=== PATIENT | female | born 1960 | race Caucasian/White ===

== ENCOUNTER → 2016-10-10 | Outpatient (CLI) | payer OTHER ==
[~2016-10-10] MED LIST: ACYC1OIN4 TOP; ALBU18002 INH; ALPR-411 PO; AMT24 PO; BIOTCAP2 PO; CALC-459 PO; CINN1CAP2 PO; CYCL0.052 OP; DTR/5 PO; FLUT1INH7 INH; FOLI1TAB7 PO; FURO-85 PO; MELO7.5T5 PO; MESA800T5 PO; METH2.5T PO; MIRA1TAB3 PO; MONT1TAB3 PO; NYSS/ PO; OXYM0.0525 NAE; PANC1200 PO; PANT40TA PO; PILO5TAB10 PO; POTA20TA16 PO; RANI150T3 PO; RMCI INJ; RXC5 PO; SUCR1TAB29 PO; TRAZ50TA35 PO; VENL150C PO
--- NOTE | 2016-10-10 15:16 | DIAGNOSTIC IMAGING REPORT ---
CHEST 2 VIEWS ROUTINE CLINICAL HISTORY: D84.9 Immunocompromised [id number] COMPARISON STUDY: No previous studies for comparison. FINDINGS: The bones soft tissues and hemidiaphragms are normal. The cardiomediastinal silhouette is normal. The lungs are clear. The pulmonary vasculature is normal. IMPRESSION: Negative chest. Electronically signed by: Teddy Escobar M.D. 10/10/2016 3:15 PM Dictated Date/Time: 10/10/2016 3:14 PM
[2016-10-10 15:46] LABS: BASO % 0.4 %; BASO ABS # 0.04 K/uL (0-0.2); COMPLETE YES; EOS % 0.6 %; HEMATOCRIT 37.8 % (37-47); IG% 0.2 %; LYMPH % 35.2 %; LYMPH ABS # 3.41 K/uL (1.2-3.4); MEAN CELL VOLUME 95.5 fL (80-100); MEAN CORPUSCULAR HEMOGLOBIN 30.3 pg (25-34); MEAN CORPUSCULAR HGB CONC 31.7 g/dl (32-36); MEAN PLATELET VOLUME 10.5 fL (7.4-10.4); MONO % 5.1 %; NEUT % 58.5 %; PLATELET COUNT 259 K/uL (130-400); RED BLOOD COUNT 3.96 M/uL (4.2-5.4); WHITE BLOOD COUNT 9.69 K/uL (4.8-10.8)
[2016-10-10 16:13] LABS: ALT/SGPT 25 U/L (12-78); AST/SGOT 24 U/L (15-37); BLOOD UREA NITROGEN 14 mg/dl (7-18); BUN/CREATININE RATIO 13.6 (10-20); CALCIUM 8.5 mg/dl (8.5-10.1); CARBON DIOXIDE 26 mmol/L (21-32); CHLORIDE 113 mmol/L (98-107); GLUCOSE 79 mg/dl (70-99); POTASSIUM 4.2 mmol/L (3.5-5.1); SODIUM 145 mmol/L (136-145)
[2016-10-10 16:16] LABS: ALB/GLOB RATIO 0.8 (0.9-2); ALKALINE PHOSPHATASE 224 U/L (45-117)
== END | disposition home or self-care (01) ==
LOC: C.RAD1850 14:52
PROVIDERS: ATTEND Physician Assistant
DX: D84.9 Immunodeficiency, unspecified (principal)

== ENCOUNTER → 2016-10-24 | Outpatient (CLI) | payer OTHER ==
[2016-10-24 16:05] LABS: BASO % 0.1 %; BASO ABS # 0.01 K/uL (0-0.2); COMPLETE YES; EOS % 0.1 %; HEMATOCRIT 35.6 % (37-47); IG% 0.5 %; LYMPH % 17.4 %; MEAN CELL VOLUME 88.1 fL (80-100); MEAN CORPUSCULAR HEMOGLOBIN 28.5 pg (25-34); MEAN CORPUSCULAR HGB CONC 32.3 g/dl (32-36); MEAN PLATELET VOLUME 9.5 fL (7.4-10.4); MONO % 4.3 %; NEUT % 77.6 %; PLATELET COUNT 357 K/uL (130-400); RED BLOOD COUNT 4.04 M/uL (4.2-5.4); WHITE BLOOD COUNT 13.23 K/uL (4.8-10.8)
[2016-10-24 17:18] LABS: ALT/SGPT 22 U/L (12-78); BLOOD UREA NITROGEN 20 mg/dl (7-18); BUN/CREATININE RATIO 13.5 (10-20); CARBON DIOXIDE 20 mmol/L (21-32); CHLORIDE 106 mmol/L (98-107); GLUCOSE 130 mg/dl (70-99); POTASSIUM 4.3 mmol/L (3.5-5.1); SODIUM 136 mmol/L (136-145)
[2016-10-24 17:19] LABS: CALCIUM 9.1 mg/dl (8.5-10.1)
[2016-10-24 17:21] LABS: ALB/GLOB RATIO 0.6 (0.9-2); ALKALINE PHOSPHATASE 210 U/L (45-117); AST/SGOT 20 U/L (15-37)
== END | disposition home or self-care (01) ==
LOC: C.LAB1850 14:21
PROVIDERS: ATTEND Physician Assistant
DX: B44.89 Other forms of aspergillosis (principal); J47.0 Bronchiectasis with acute lower respiratory infection; D84.9 Immunodeficiency, unspecified

== ENCOUNTER → 2016-12-18 | Day surgery (SDC) | payer OTHER ==
[2016-12-18] VITALS (12 sets, daily range): BP systolic 101–144; BP diastolic 50–81; PULSE 60–82; TEMP 36.6–37; O2SAT 95–100; Ht 180.3 cm; Wt 122.5 kg
[~2016-12-18] VITALS: Ht 180.3 cm; Wt 122.5 kg
[~2016-12-18] MED LIST changes: -DTR/5 PO; +FENTANYL CITRATE 100 MCG 2 ML CARP IV ONE; +FENTANYL CITRATE INJ 50 MCG/1 ML 2 ML VIAL IV ONE; +MIDAZOLAM HCL 5 MG/ML 1 ML VIAL IV ONE; +NURSING VERBAL MED ORDER ONE; +OXYB5TAB74 PO
--- NOTE | 2016-12-18 09:43 | History & Physical Bridge Note ---
H&P Re-Evaluation Bridge Note: I have examined the patient, reviewed the History & Physical and in the interval since the performance of the History & Physical I have noted the following changes of clinical significance: No changes noted
--- NOTE | 2016-12-18 09:45 | Procedure Note ---
Pre-Mod Sedation Assessment General Date of Moderate Sedation: Dec 18, 2016. Vital Signs: Vital Signs Past 12 Hours Date Time Temp Pulse Resp B/P (MAP) Pulse Ox O2 Delivery O2 Flow Rate FiO2 12/18/16 08:35 36.6 67 20 144/70 (94) 99 Room Air Review Cardiovascular: regular rate, rhythm, no edema, no gallop, no JVD, no murmur Abdomen: normal bowel sounds, non tender, soft, no organomegaly, no pulsatile mass Lungs: chest non-tender, + wheezing Airway Class: III Pre-Sedation Airway Assessment Oral Cavity: Chipped Teeth, WNL (clear no active signs of infection) Able to Visualize Vocal Cords: Yes Short Thick Neck: Yes Hx of Sleep Apnea: No Smoking Status: Former Smoker Mallampati Classification: Class I ASA Classification: Class II Procedure Planning Contraindications-for Mod Sed: None Yes Notes The planned sedation has been discussed with the patient and consent obtained. I have identified the patient, determined the appropriateness of sedation and have assessed the patient immediately prior to the procedure. All medicine(s) and interventions are by my order.
--- NOTE | 2016-12-18 10:29 | Procedure Note ---
Post-Moderate Sedation Plan General Date of Moderate Sedation Dec 18, 2016. Vital Signs: Vital Signs Past 12 Hours Date Time Temp Pulse Resp B/P (MAP) Pulse Ox O2 Delivery O2 Flow Rate FiO2 12/18/16 09:48 36.6 67 20 144/70 99 Room Air 12/18/16 08:35 36.6 67 20 144/70 (94) 99 Room Air Review - Discharge Plan Post Moderate Sedation Plan: On clinical assessment, the patient appears to have tolerated the conscious sedation without complications. Patient is recovering as anticipated. Patient will continue to be monitored by nursing and may be discharged when conscious sedation discharge criteria are met.
--- NOTE | 2016-12-18 10:31 | Bronchoscopy Procedure Note ---
Bronchoscopy Procedure Note Procedure: Bronchoscopy, conscious sedation, bronchial lavage left upper lobe Consent: Obtained through the patient placed into the chart Pre-procedural diagnosis: Chronic bronchiectasis Post-procedural diagnosis: Chronic bronchiectasis Start time: 1010 End time: 102 Total time: 11 minutes Analgesia: 2% liquid lidocaine: Via nebulizer 4% gel lidocaine: Via right naris 2% liquid lidocaine: Via bronchoscopy Sedation: Versed IV: 3 mg Fentanyl IV: 50 g Procedure: The Olympus video bronchoscope was used for this procedure and passed down through the oropharynx and right naris Oropharynx: The oropharynx posterior oropharynx was visualized and retroflexed off the soft palate and posteriorly evaluated the nasal cavities. These were notably showing signs of chronic erythema left greater than right Right naris/posterior naris/posterior oropharynx: Anatomically within normal limits, mild mucous secretions Glottis: Anatomically within normal limits Vocal cords: Proper abduction and abduction, anatomically within normal limits Subglottis/trachea/June: Anatomically within normal limits Right bronchial tree: Right mainstem bronchus: Anatomically within normal limits, minimal mucous secretions Right upper lobe: Anatomically within normal limits Bronchus intermedius: Anatomically within normal limits Right middle lobe: Anatomically within normal limits Right lower lobe: Anatomically within normal limits, moderate mucous secretions Findings: Minimal to moderate mucous secretions appreciated Left bronchial tree: Left mainstem bronchus: Anatomically within normal limits Left upper lobe: Anatomically within normal limits, moderate mucous secretions Lingula: Anatomically within normal limits Left lower lobe: Anatomically within normal limits, minimal mucous secretions Findings: Minimal to moderate mucous secretions appreciated Bronchial alveolar lavage: Left upper lobe EBL: None Complications: None Follow-up: In the [facility]
--- NOTE | 2016-12-18 10:37 | Discharge Instructions ---
Discharge Instructions Date of Service Dec 18, 2016. Admission Reason for Admission: Chronic Cough Discharge Discharge Diagnosis / Problem: chronic bronchiectasis Discharge Goals Goal(s): Diagnostic testing Activity Recommendations Activity Limitations: resume your previous activity . Current Hospital Diet Patient's current hospital diet: Discharge Diet Recommended Diet: Regular Diet Procedures Procedures Performed: Bronchoscopy, conscious sedation, bronchial lavage of the left upper lobe Pending Studies Studies pending at discharge: no Medical Emergencies . Who to Call and When: Medical Emergencies: If at any time you feel your situation is an emergency, please call 911 immediately. . Non-Emergent Contact Non-Emergency issues call your: [employer] . . "Provider Documentation" section prepared by John Gutierrez. . VTE Core Measure Inpt VTE Proph given/why not?: Treatment not indicated
[2017-01-14 09:08] LABS: HERPES SIMPLEX CULT SOURCE OTHER-BAL LUL; HERPES SIMPLEX VIRUS CULT NOT ISOLATED (NOT ISOLATED)
== END | disposition home or self-care (01) ==
LOC: C.ACU 08:03
PROVIDERS: ATTEND Internal Medicine Critical Care Medicine
DX: J47.9 Bronchiectasis, uncomplicated (principal); J44.9 Chronic obstructive pulmonary disease, unspecified; K51.90 Ulcerative colitis, unspecified, without complications; M06.9 Rheumatoid arthritis, unspecified; E11.9 Type 2 diabetes mellitus without complications; E66.9 Obesity, unspecified; Z86.718 Personal history of other venous thrombosis and embolism; Z98.84 Bariatric surgery status; Z87.891 Personal history of nicotine dependence

== ENCOUNTER → 2016-12-25 | Outpatient (CLI) | payer OTHER ==
[~2016-12-25] MED LIST changes: -FENTANYL CITRATE 100 MCG 2 ML CARP IV ONE; -FENTANYL CITRATE INJ 50 MCG/1 ML 2 ML VIAL IV ONE; -MELO7.5T5 PO; -MIDAZOLAM HCL 5 MG/ML 1 ML VIAL IV ONE; -NURSING VERBAL MED ORDER ONE
--- NOTE | 2016-12-25 16:07 | DIAGNOSTIC IMAGING REPORT ---
SINUSES MIN 3 VIEWS ROUTINE CLINICAL HISTORY: J32.9 [id number] COMPARISON STUDY: No previous studies for comparison. FINDINGS: No air-fluid levels are visualized. There is no significant mucoperiosteal thickening. There are no destructive changes. There is hyperostosis frontalis interna. IMPRESSION: No conventional radiographic evidence of sinusitis. Electronically signed by: Omar Dee M.D. 12/25/2016 4:06 PM Dictated Date/Time: 12/25/2016 4:05 PM
== END | disposition home or self-care (01) ==
LOC: C.RAD1850 15:48
PROVIDERS: ATTEND Dermatology
DX: J32.9 Chronic sinusitis, unspecified (principal)

== ENCOUNTER → 2017-02-19 | Outpatient (CLI) | payer OTHER ==
--- NOTE | 2017-02-19 13:27 | DIAGNOSTIC IMAGING REPORT ---
CT SCAN OF THE PARANASAL SINUSES CLINICAL HISTORY: Chronic sinusitis. COMPARISON STUDY: Radiographs of the paranasal sinuses dated 12/25/2016. TECHNIQUE: High-resolution CT scan of the paranasal sinuses is performed. Images are reviewed in the axial, sagittal, and coronal planes. IV contrast was not administered for this examination. Examination is performed using the fusion protocol. A dose lowering technique was utilized adhering to the principles of ALARA. CT DOSE: 620.08 mGy.cm FINDINGS: Maxillary antra: Clear bilaterally. Anterior ethmoid sinuses: Trace mucosal thickening is seen on the right. Clear on the left. Posterior ethmoid sinuses: Clear. Sphenoid sinuses: Clear. Frontal sinuses: Clear. Ostiomeatal complexes: Patent bilaterally. Frontoethmoidal and sphenoethmoidal recesses: Patent bilaterally. Carotid arteries: The carotid arteries are covered and without septal attachments. Ethmoid roofs: There is slightly asymmetric elevation of the right ethmoid roof as compared to the left. Nasal turbinates: Normal in appearance. Nasal septum: There is minimal leftward deviation of the bony nasal septum. Optic nerves: Covered. Orbits: The bony orbits are intact. Orbital contents are normal in appearance noting bilateral ocular lens implants. Calvarium: The skeletal structures are osteopenic. The imaged calvarium is normal in appearance Mastoid air cells: There are trace mastoid effusions. Brain parenchyma: Partially visualized brain parenchyma is within normal limits. Soft tissues: Sebaceous cysts are present in the parietal scalp bilaterally. IMPRESSION: No significant paranasal sinus disease. Electronically signed by: Paulino Youngblood M.D. 02/19/2017 1:26 PM Dictated Date/Time: 02/19/2017 1:12 PM
== END | disposition home or self-care (01) ==
LOC: C.CTS 12:14
DX: J32.9 Chronic sinusitis, unspecified (principal)

== ENCOUNTER → 2017-03-31 | Outpatient (CLI) | payer OTHER ==
[~2017-03-31] MED LIST changes: +DTR/5 PO; -OXYB5TAB74 PO
--- NOTE | 2017-03-31 14:25 | DIAGNOSTIC IMAGING REPORT ---
CHEST 2 VIEWS ROUTINE CLINICAL HISTORY: R05 Chronic xiessL37.9 [id number] COMPARISON STUDY: 10/10/2016 FINDINGS: The cardiac and mediastinal contours are normal. There is no evidence of focal pulmonary consolidation. There is no evidence of failure. No pleural effusions are visualized.[ A spinal electrode is again visualized. IMPRESSION: No active disease in the chest. Electronically signed by: Omar Dee M.D. 03/31/2017 2:24 PM Dictated Date/Time: 03/31/2017 2:23 PM
== END | disposition home or self-care (01) ==
LOC: C.RAD1850 14:07
PROVIDERS: ATTEND Physician Assistant
DX: J47.9 Bronchiectasis, uncomplicated (principal); R05 Cough

== ENCOUNTER → 2017-05-26 | Outpatient (CLI) | payer OTHER ==
[~2017-05-26] MED LIST changes: -FOLI1TAB7 PO; +FOLI1TAB8 PO
--- NOTE | 2017-05-26 15:04 | DIAGNOSTIC IMAGING REPORT ---
CHEST 2 VIEWS ROUTINE CLINICAL HISTORY: J47.9 Bronchiectasis dyspnea COMPARISON STUDY: 03/31/2017 FINDINGS: Mild stable cardiomegaly. Bilateral stimulator overlying the low thoracic region. Minimal chronic interstitial change left and to lesser extent right base. No focal infiltrate. Several small calcified granulomas. IMPRESSION: Chronic and postoperative change. No acute process. The above report was generated using voice recognition software. It may contain grammatical, syntax or spelling errors. Electronically signed by: Teddy Escobar M.D. 05/26/2017 3:03 PM Dictated Date/Time: 05/26/2017 3:02 PM
[2017-05-26 16:02] LABS: INFLUENZA B ANTIGEN Neg for Influ B (NEG)
== END | disposition home or self-care (01) ==
LOC: C.LAB1850 14:42
PROVIDERS: ATTEND Physician Assistant
DX: J47.9 Bronchiectasis, uncomplicated (principal)

== ENCOUNTER → 2017-06-16 | Outpatient (CLI) | payer OTHER ==
[~2017-06-16] MED LIST changes: +DIAZ10TA PO; +LISI-461 PO
--- NOTE | 2017-06-16 11:20 | DIAGNOSTIC IMAGING REPORT ---
CHEST 2 VIEWS ROUTINE CLINICAL HISTORY: 56 years-old Female presenting with J47.9 [id number]. TECHNIQUE: PA and lateral views of the chest were obtained. COMPARISON: 05/26/2017. FINDINGS: Spinal stimulator projects over the T7-8 level at its superior extent. Cardiac silhouette mildly enlarged, unchanged. Lungs and pleural spaces clear. Osseous structures normal. Cholecystectomy clips noted. IMPRESSION: 1. No acute cardiopulmonary disease. Electronically signed by: Roman Joseph M.D. 06/16/2017 11:18 AM Dictated Date/Time: 06/16/2017 11:17 AM
[2017-06-16 12:03] LABS: BASO % 0.3 %; BASO ABS # 0.03 K/uL (0-0.2); EOS % 0.7 %; EOS ABS # 0.08 K/uL (0-0.5); HEMATOCRIT 35.9 % (37-47); HEMOGLOBIN 11.3 g/dL (12.0-16.0); IG# 0.11 K/uL (0.00-0.02); LYMPH % 11.7 %; LYMPH ABS # 1.34 K/uL (1.2-3.4); MEAN CELL VOLUME 93.5 fL (80-100); MEAN CORPUSCULAR HEMOGLOBIN 29.4 pg (25-34); MEAN CORPUSCULAR HGB CONC 31.5 g/dl (32-36); MEAN PLATELET VOLUME 9.1 fL (7.4-10.4); MONO % 5.2 %; NEUT % 81.1 %; NEUT ABS # 9.31 K/uL (1.4-6.5); PLATELET COUNT 407 K/uL (130-400); RED CELL DISTRIBUTION WIDTH CV 16.7 % (11.5-14.5); WHITE BLOOD COUNT 11.47 K/uL (4.8-10.8)
[2017-06-16 12:19] LABS: PTT PATIENT 27.8 SECONDS (21.0-31.0)
[2017-06-16 13:36] LABS: BLOOD UREA NITROGEN 29 mg/dl (7-18); CALCIUM 8.6 mg/dl (8.5-10.1); CARBON DIOXIDE 18 mmol/L (21-32); CREATININE 1.33 mg/dl (0.60-1.20); GLUCOSE 78 mg/dl (70-99); POTASSIUM 4.2 mmol/L (3.5-5.1); SODIUM 139 mmol/L (136-145)
== END | disposition home or self-care (01) ==
LOC: C.RAD1850 11:00
PROVIDERS: ATTEND Physician Assistant
DX: J47.9 Bronchiectasis, uncomplicated (principal)

== ENCOUNTER 2017-06-18 07:09 | Day surgery (SDC) | payer OTHER ==
--- NOTE | 2017-06-17 18:36 | History and Physical ---
History & Physical Date of Service Jun 17, 2017. History & Physical Here for bronchoscopic evaluation secondary to refractory cough with purulent secretions after 2 courses of antibiotics and Tamiflu. Of note the patient does have a history of Aspergillus and recurrence epistaxis. 56-year-old female presents the office acutely in the setting of recent respiratory infection, influenza A and h/o COPD / bronchiectasis. Respiratory history notable for Aspergillus fumigatus - pulmonary. Prior records reviewed. PMHx includes: ulcerative colitis, rheumatoid arthritis on chronic prednisone (7.5mg per day), immunosuppression (Remicade, prednisone, methotrexate), COPD/Bronchiectasis (dx early ), chronic sinusitis, sjogrens , IBD, DM II, obesity, h/o provoked DVT 2011 (post ankle surgery), h/o MSSA wound infection, h/o bariatric surgery. She is a former smoker: 10-pack year, quit 1991 with second hand exposure. Patient initially seen in the office 11/2016 with h/o frequent pneumonia. COPD was diagnosed in the early . SHe has been prescribed Advair in the past as well as Breo and Incruse (current). 2010 she was referred to Pulmonary - LUL[facility] Jones for w/u of a "spot" on her lungs. Bronchoscopy with biopsy preformed by Dr. Paulo Spaulding which she reports was unremarkable and no follow-up required. [id number], she developed progressive symptoms of dyspnea with exertion such as ambulating steps and with exposure to hot/humid air. September 2016 she was admitted symptomatic of acute dyspnea, malaise and cough with transfer to [facility]. CTA (no PE): patchy dense consolidation of the lingula per records. She was initially treated with vancomycin and Levaquin and transitioned to Cefepime and Levaquin. Sputum culture 09/2016: slight Aspergillus fumigatus for which she was followed by ID prescribed voriconazole - discontinued in the January 2017. Cryptococcal Ag and serum galactomannan were negative. CT 10/03/2016: No filling defects. No adenopathy. Bronchiectasis moderate in both lower lobes, RML, and inferior lingula with mild bilateral lower lobe scarring. 12/18/16 bronchoscopy - chronic erythema of the Left>Right posterior nares and posterior oropharynx and mild mucous secretions. Minimal- moderate mucous lavaged from the RLL, right mainstem bronchus, SMOOTH and LLL. Bal: normal travis. No fungal or AFB. NO pathology obtained. Cough persisted despite procedure and she was referred to ENT for chronic sinus symptoms and seen more recently with Sjogren diagnosis. March 2017 she completed a course of Augmentin + Prednisone for purulent cough symptoms initially improved but unfortunately, returned and last visit she c/o return of productive cough. Influenza A titer + and she completed oseltamivir as well as doxycycline. She follows up today and continues to report copious purulent sputum white/green/yen in nature. Additionally, she reports episodes of epistaxis and hemoptysis 1-tsp. She reports dyspnea provoked with the cold air. No fevers/chills or chest pain. Review of Systems Constitutional: no fever, not feeling poorly, no chills and not feeling tired. Eyes: negative. ENT: as noted in HPI, no sore throat and no hoarseness. Cardiovascular: as noted in HPI, no chest pain and no palpitations. Respiratory: cough and wheezing, but no shortness of breath and no shortness of breath during exertion. Gastrointestinal: as noted in HPI, no abdominal pain and no heartburn. Musculoskeletal: arthralgias and myalgias. Hematologic/Lymphatic: negative. Active Problems 1. Aspergillus fumigatus (B44.89) 2. Bronchiectasis (J47.9) 3. Chronic cough (R05) 4. Chronic sinusitis (J32.9) 5. Flu-like symptoms (R68.89) 6. Immunocompromised state (D84.9) 7. Infection following procedure, subsequent encounter (T81.4XXD) 8. Influenza (J11.1) 9. MSSA (methicillin susceptible Staphylococcus aureus) infection (A49.01) 10. Right wrist joint infection (M00.9) 11. Sinusitis (J32.9) 12. Sjogrens syndrome (M35.00) 13. Stomach pain (R10.9) 14. Streptococcal infection (A49.1) 15. Yeast infection (B37.9) Past Medical History 1. History of Anxiety (F41.9) 2. Bronchiectasis with acute lower respiratory infection (J47.0) 3. History of arthritis (Z87.39) 4. History of asthma (Z87.09) 5. History of bronchitis (Z87.09) 6. Denied: History of complications due to general anesthesia 7. History of depression (Z86.59) 8. History of diabetes mellitus (Z86.39) Surgical History 1. History of appendectomy 2. History of cataract surgery 3. History of elbow surgery 4. History of foot surgery 5. History of gallbladder surgery 6. History of hernia repair 7. History of neurostimulator device insertion 8. History of ostectomy of calcaneus for spur 9. History of sinus surgery 10. History of stomach surgery 11. History of wrist surgery Family History 1. Family history of arthritis (Z82.61) 2. Family history of cardiac disorder (Z82.49) 3. Family history of diabetes mellitus (Z83.3) 4. Family history of arthritis (Z82.61) 5. Family history of cardiac disorder (Z82.49) 6. Family history of diabetes mellitus (Z83.3) 7. Family history of asthma (Z82.5) 8. Family history of hypertension (Z82.49) 9. Family history of transient ischemic attacks (Z82.3) Social History Denied: History of Alcohol use Does not use smokeless tobacco Denied: History of Drug use Former smoker Occupation Secondhand smoke exposure Current Meds 1. Flutter FADIA; USE DIRECTED; 2. Incruse Ellipta 62.5 MCG/INH Inhalation Aerosol Powder Breath Activated; USE 1 3. Ipratropium-Albuterol 0.5-2.5 (3) MG/3ML Inhalation Solution; USE 1 UNIT DOSE IN 4. PredniSONE 10 MG Oral Tablet; TAKE 4 TABLETS ONCE DAILY FOR 2 DAYS THE 5. RaNITidine HCl - 150 MG Oral Tablet; TAKE 1 TABLET AT BEDTIME; 6. Acyclovir 5 % External Ointment; 7. Amitiza 24 MCG Oral Capsule; take 1 tablet daily with food (11-19-17 - PER PT - THIS IS 8. Asacol HD 800 MG Oral Tablet Delayed Release; TAKE 2 TABLET 3 times daily; 9. Biotin 5000 MCG Oral Capsule; 2 Capsules Daily; 10. Breo Ellipta 200-25 MCG/INH Inhalation Aerosol Powder Breath Activated; INHALE 1 11. Carafate 1 GM Oral Tablet; 1 Tablet 4 x daily and at bedtime on empty stomach; 12. Cinnamon CAPS; 13. Comfort Gel SUSP; 14. Creon 90524 UNIT Oral Capsule Delayed Release Particles; 1 tablet with meals and 15. Diflucan 100 MG Oral Tablet; TAKE 1 TABLET DAILY DIRECTED; 16. Effexor XR 150 MG Oral Capsule Extended Release 24 Hour; TAKE 2 CAPSULES DAILY; 17. Folic Acid 1 MG Oral Tablet; TAKE 1 TABLET DAILY; 18. Humira 40 MG/0.8ML Subcutaneous Prefilled Syringe Kit 19. Lasix 20 MG Oral Tablet; TAKE 1 TABLET DAILY NEEDED 20. Methotrexate 2.5 MG Oral Tablet; 7 tablets once on 21. Mobic 7.5 MG Oral Tablet; Take 1 tablet daily; 22. Myrbetriq 50 MG Oral Tablet Extended Release 24 Hour; 1 tablet daily at supper; 23. Nasonex 50 MCG/ACT Nasal Suspension; 24. Oxybutynin Chloride 5 MG Oral Tablet; Take 1 tablet daily; 25. Percocet 10-325 MG Oral Tablet; TAKE 1 TABLET EVERY 8 HOURS NEEDED FOR 26. Potassium Chloride 20 MEQ TBCR; 27. ProAir HFA AERS; 28. Restasis 0.05 % Ophthalmic Emulsion; INSTILL 1 DROP IN EACH EYE TWICE DAILY ; 29. Salagen 5 MG Oral Tablet; TAKE 2 TABLET 3 times daily; 30. Singulair 10 MG Oral Tablet; TAKE 1 TABLET AT BEDTIME; 31. TraZODone HCl - 50 MG Oral Tablet; TAKE 1 TABLET AT BEDTIME; 32. Vfend 200 MG Oral Tablet; TAKE 1 TABLET EVERY 12 HOURS DAILY. x 3 weeks 33. Xanax 0.25 MG Oral Tablet; TAKE 1 TABLET 3 TIMES DAILY; 34. Zantac 150 MG Oral Tablet; TAKE 1 TABLET DAILY Current Orders 1. FUSION CT SINUS W/O; Requested for:[id number]; Allergies 1. azithromycin 2. Biaxin 3. ciprofloxacin 4. clarithromycin 5. Gabapentin CAPS 6. Lyrica CAPS Vitals Blood Pressure: 116 / 78, LUE, Sitting Height: 5 ft 11 in Weight: 264 lb 8 oz BMI Calculated: 36.89 BSA Calculated: 2.37 Respiration: 15 Temperature: 98.7 F Heart Rate: 80 O2 Saturation: 99, RA Constitutional: Well developed, well nourished obese female. No acute distress. Head: + facial symmetry Eyes: EOMi, PERRLA, no conjunctival injection Mouth: Mallampati [II/III]. No exudate, or post nasal gtt Neck: Trachea midline. No adenopathy or masses Respiratory: Non-labored respirations. Scattered coarse bilateral rales and rhonchi. No clubbing or cyanosis. Cardiovascular: RRR, no MRG. +2 radial pulses. <1s capillary refill. Abdomen: soft, active bowel sounds Integumentary: no rashes, or ecchymosis MSK/Extremities: Moving and developed symmetrically. No peripheral edema. No calf tenderness. Neurologic: A&O, data recall in-tact. Appropriate affect.
[~2017-06-18] VITALS: Ht 180.3 cm; Wt 119.0 kg
[~2017-06-18 07:09] MED LIST changes: -DIAZ10TA PO; -LISI-461 PO
[2017-06-18] MEDS ORDERED: DIAZ10TA PO (08:22)
[2017-06-18 08:26] VITALS: BP 154/84; PULSE 85; TEMP 36.6; O2SAT 97; Ht 180.3 cm; Wt 119.0 kg
[2017-06-18] MEDS ORDERED: LISI-461 PO (08:45)
--- NOTE | 2017-06-18 09:06 | Pre Sedation Assessment ---
Pre Sedation Assessment General Date of Sedation: Jun 18, 2017. Vital Signs Past 12 Hours Date Time Temp Pulse Resp B/P (MAP) Pulse Ox O2 Delivery O2 Flow Rate FiO2 06/18/17 08:26 36.6 85 20 154/84 (107) 97 Room Air Review Lungs: + rhonchi, + wheezing Pre-Sedation Airway Assessment Smoking Status: Former Smoker Hx of Sleep Apnea: No Hx of difficult intubation: No Short Thick Neck: No Thyro-mental Distance: > 3 Finger Breadths Oral Cavity: Capped Teeth Mallampati Classification: Class I ASA Classification: Class II NPO Status Date of Last Intake of Fluids: Jun 17, 2017 Time of Last Intake of Fluids: 2300 Date of Last Intake of Solids: Jun 17, 2017 Time of Last Intake of Solids: 2100 Procedure Planning Contraindications for Sedation: None Current Medications Reviewed: Yes Notes The planned sedation has been discussed with the patient. Informed Consent was obtained. I have identified the patient, determined the appropriateness of sedation and have assessed the patient immediately prior to the procedure. All medicine(s) and interventions are by my order.
[2017-06-18] MEDS ORDERED: DEXTROSE 5% 1000ML 1,000 ML IV SCH (09:15)
[2017-06-18] MEDS ORDERED: NURSING VERBAL MED ORDER ONE (09:15)
--- NOTE | 2017-06-18 09:48 | Post Sedation Assessment ---
Post Sedation Assessment General Date of Sedation Jun 18, 2017. Vital Signs: Vital Signs Past 12 Hours Date Time Temp Pulse Resp B/P (MAP) Pulse Ox O2 Delivery O2 Flow Rate FiO2 06/18/17 09:35 89 18 120/75 99 Mask 6 06/18/17 09:30 86 18 130/76 99 Mask 6 06/18/17 09:25 86 18 130/76 99 Mask 6 06/18/17 09:19 87 18 120/77 99 Mask 8 06/18/17 08:26 36.6 85 20 154/84 (107) 97 Room Air Post Procedure Recovery Score Activity: (2) Moves 4 extremities * Respiration: (2) Deep breath/cough Circulation: (2) +/-20% PreAnes Value Consciousness: (2) Fully Awake Oxygen Saturation: (2) > 92% On Room Air Discharge Sedation Level of Care: Phase I Post Sedation Plan On clinical assessment, the patient appears to have tolerated the sedation without complications. Patient is recovering as anticipated. Patient will continue to be monitored by nursing and may be discharged when sedation discharge criteria are met per below protocol. Upon Completions of procedure and additional 15 minutes continue every 5 minute vital signs and the P.A.R. score; then discharge to a Phase I or Fast Track to Phase II per the following guidelines: * Discharge Patient to appropriate Phase II area if PAR is 8 or greater or return to pre- procedure baseline. The post - procedure orders will be as directed. * If PAR score is less than 8 or not return to pre-procedure baseline then patient will follow Phase I monitoring till PAR is reached for Phase II. The Phase I may be done in procedure room or may call to secure a Phase I area. * If naloxone or flumazenil are used for reversal, hold in Phase I for an additional 60 -120 minutes before discharge to Phase II. Please call the Sedation Physician to re-evaluate and complete post-note for discharge to Phase II area. Do NOT discharge from procedure sedation or Phase 1 until post- sedation evaluation note is complete by procedure /sedation MD Sedation Discharge Instructions to be given to the patient at discharge to home.
--- NOTE | 2017-06-18 09:50 | Bronchoscopy Procedure Note ---
Bronchoscopy Procedure Note Procedure: Bronchoscopy, conscious sedation, bronchial lavage in the right middle lobe and left lower lobe Consent: Obtained through the patient placed into the chart Pre-procedural diagnosis: Chronic cough Post-procedural diagnosis: Chronic cough Start time: 926 End time: 944 Total time: minutes Analgesia: 2% liquid lidocaine: Via nebulizer 4% gel lidocaine: Via right naris 2% liquid lidocaine: Via bronchoscopy Sedation: Versed IV: 4mg Fentanyl IV: 75g Procedure: The Olympus video bronchoscope was used for this procedure and passed down through the right naris, multiple mucous plugs and erythema of the right naris Right naris/posterior naris/posterior oropharynx: Anatomically within normal limits, multiple mucous plugs and erythema posterior naris Glottis: Anatomically within normal limits Vocal cords: Proper abduction and abduction, anatomically within normal limits Subglottis/trachea/June: Anatomically within normal limits Right bronchial tree: Right mainstem bronchus: Anatomically within normal limits Right upper lobe: Anatomically within normal limits Bronchus intermedius: Anatomically within normal limits Right middle lobe: Anatomically within normal limits Right lower lobe: Anatomically within normal limits Findings: No significant findings noted Left bronchial tree: Left mainstem bronchus: Anatomically within normal limits Left upper lobe: Anatomically within normal limits Lingula: Anatomically within normal limits Left lower lobe: Anatomically within normal limits, minimal mucous plugs Findings: No significant findings noted Bronchial alveolar lavage: Bronchial lavage performed of the right middle lobe and left lower EBL: None Complications: None Follow-up: [facility]
[2017-06-18] MEDS ORDERED: LIDOCAINE HCL 2% LOCAL 50ML VIAL INSTIL ONE (09:51)
[2017-06-18] MEDS ORDERED: FENTANYL CITRATE INJ 50 MCG/1 ML 2 ML VIAL IV ONE (09:51)
[2017-06-18] MEDS ORDERED: LIDOCAINE 4% INH SOLN 4 ML BTL TOP ONE (09:51)
[2017-06-18] MEDS ORDERED: LIDOCAINE VISCOUS 2% 100ML TOP ONE (09:51)
[2017-06-18] MEDS ORDERED: MIDAZOLAM HCL 5 MG/ML 1 ML VIAL IV ONE (09:51)
--- NOTE | 2017-06-18 09:54 | Discharge Instructions ---
Discharge Instructions Date of Service Jun 18, 2017. Admission Reason for Admission: Chronic Cough, Bronchiectasis Discharge Discharge Diagnosis / Problem: chronic cough Discharge Goals Goal(s): Diagnostic testing Activity Recommendations Activity Limitations: resume your previous activity . Instructions / Follow-Up Instructions / Follow-Up Follow-up in the [facility] pulmonary clinic Current Hospital Diet Patient's current hospital diet: Discharge Diet Recommended Diet: Regular Diet Procedures Procedures Performed: Bronchoscopy, conscious sedation, bronchial lavage of the right middle lobe, bronchial lavage of the left lower lobe Pending Studies Studies pending at discharge: no Medical Emergencies . Who to Call and When: Medical Emergencies: If at any time you feel your situation is an emergency, please call 911 immediately. . Non-Emergent Contact Non-Emergency issues call your: Pathology Manager . . "Provider Documentation" section prepared by John Gutierrez. . VTE Core Measure Inpt VTE Proph given/why not?: Treatment not indicated
[2017-06-18 10:05] VITALS: BP 131/66; PULSE 84; TEMP 36.8; O2SAT 97
[2017-06-18 10:29] VITALS: BP 120/63; PULSE 83; O2SAT 96
[2017-06-18 11:05] VITALS: BP 113/72; PULSE 83; O2SAT 95
[2017-06-18 11:29] VITALS: BP 125/65; PULSE 85; O2SAT 95
[2017-06-18 11:55] VITALS: BP 127/68; PULSE 87; TEMP 36.4; O2SAT 95
== END 2017-06-18 12:15 | disposition home or self-care (01) ==
LOC: C.ACU 07:09
PROVIDERS: ATTEND Internal Medicine Critical Care Medicine
DX: J47.9 Bronchiectasis, uncomplicated (principal); M35.00 Sjogren syndrome, unspecified; M19.90 Unspecified osteoarthritis, unspecified site; Z79.52 Long term (current) use of systemic steroids; Z82.61 Family history of arthritis; Z82.49 Family history of ischemic heart disease and other diseases of the circulatory system; Z83.3 Family history of diabetes mellitus; Z82.5 Family history of asthma and other chronic lower respiratory diseases; Z82.3 Family history of stroke

== ENCOUNTER → 2018-01-05 | Outpatient (CLI) | payer OTHER ==
[~2018-01-05] MED LIST changes: -ALPR-411 PO; +DIAZ10TA PO; +LISI-461 PO; -PILO5TAB10 PO; +POTA-639 PO; -POTA20TA16 PO; -RMCI INJ; -VENL150C PO; +VENL150C2 PO
--- NOTE | 2018-01-05 10:27 | DIAGNOSTIC IMAGING REPORT ---
R RIBS UNILATERAL WITH PA CHEST HISTORY: 57 years-old Female R07.81 Rib pain on right side acute atypical chest pain with right-sided rib pain COMPARISON: Chest radiograph 12/01/2017 TECHNIQUE: PA view of the chest with 4 views of the right ribs FINDINGS: Cardiomediastinal and hilar silhouettes are within normal limits. No pneumothorax, pleural effusion, focal airspace consolidation or overt pulmonary edema. Stimulator leads are noted overlying the thoracic spine terminating at the level of T8-T9. The visualized leads appear to be intact. Surgical clips of the abdominal right upper quadrant are noted suggesting prior cholecystectomy. Moderate stool volume of the hepatic flexure. No acute displaced rib fracture identified. IMPRESSION: 1. No acute processes of the chest. 2. No acute rib fracture identified. The above report was generated using voice recognition software. It may contain grammatical, syntax or spelling errors. Electronically signed by: Kiran Leyva M.D. 01/05/2018 10:26 AM Dictated Date/Time: 01/05/2018 10:24 AM
== END | disposition home or self-care (01) ==
LOC: C.RAD1850 10:07
PROVIDERS: ATTEND Physician Assistant
DX: R07.81 Pleurodynia (principal)